=== PATIENT | female | born 1960 | race Caucasian/White ===

== ENCOUNTER 2016-08-12 23:25 | Emergency (ER) | payer BC ==
[~2016-08-12] VITALS: Ht 162.6 cm; Wt 115.0 kg
[~2016-08-12 23:25] MED LIST: HCTZ 25MG TAB25 MG PO
[2016-08-12 23:27] VITALS: TEMP 98.5
[2016-08-12] MEDS ORDERED: GLUCOPHAGE500 MG/TAB PO (23:35)
[2016-08-13 00:31] LABS: ADJUSTED CALCIUM 9.1 mg/dL (8.4-10.2); ALBUMIN 4.1 gm/dL (3.5-5.0); BILIRUBIN,TOTAL 0.4 mg/dL (0.0-1.0); CALCIUM 9.2 mg/dL (8.4-10.2); CREATININE, serum 0.64 mg/dL (0.52-1.25); POTASSIUM 3.9 mmol/L (3.4-5.0); TOTAL PROTEIN 7.3 gm/dL (6.4-8.2)
[2016-08-13] MEDS ORDERED: PRINIVIL5 MG PO (00:36)
[2016-08-13] MEDS ORDERED: LIPITOR 40MG TA40 MG PO (00:37)
[2016-08-13 00:39] LABS: BASO % 0.3 % (0.0-2.0); EOS # 0.3 (0.0-0.7); EOS % 2.9 % (0-4.0); GRAN % 61.3 % (42.2-75.2); HEMATOCRIT 38.4 % (37.0-47.0); HEMOGLOBIN 12.1 g/dl (12.5-16.0); LYMPH # 3.1 (1.2-3.4); LYMPH % 26.9 % (20.0-51.0); MEAN CELL VOLUME 81 fl (80.0-100.0); MEAN CORPUSCULAR HEMOGLOBIN 26 pg (27.0-31.0); MEAN CORPUSCULAR HGB CONC 32 g/dl (33.0-37.0); MONO % 8.3 % (1.7-9.3); PLATELET COUNT 325 K/mm3 (130-400); RED BLOOD COUNT 4.74 M/mm3 (4.10-5.30); REDCELL DISTRIBUTION WIDTH-CV 14.9 % (11.5-14.5); WHITE BLOOD COUNT 11.4 K/mm3 (4.8-10.8)
[2016-08-13] MEDS ORDERED: ANTIVERT 25MG25 MG PO (01:37)
[2016-08-13] MEDS ORDERED: PHENERGAN 25 TA25 MG PO (01:37)
[2016-08-13 01:52] VITALS: BP 128/71; PULSE 94
== END 2016-08-13 01:52 | disposition home or self-care (01) ==
LOC: COL.ER 23:25
PROVIDERS: Emergency Medicine
DX: R42 Dizziness and giddiness (principal); E11.9 Type 2 diabetes mellitus without complications; Z79.84 Long term (current) use of oral hypoglycemic drugs; I10 Essential (primary) hypertension; R11.0 Nausea
CPT/HCPCS: J2550; J7030

== ENCOUNTER → 2019-07-09 | Outpatient (CLI) | payer BC ==
[~2019-07-09] MED LIST changes: +ANTIVERT 25MG25 MG PO; +GLUCOPHAGE500 MG/TAB PO; +LIPITOR 40MG TA40 MG PO; +PHENERGAN 25 TA25 MG PO; +PRINIVIL5 MG PO
== END ==
LOC: MC.RAD 08:21
DX: N63.10 Unspecified lump in the right breast, unspecified quadrant (principal)

== ENCOUNTER 2019-07-23 07:06 | Day surgery (SDC) | payer BC ==
[~2019-07-23] VITALS: Ht 165.1 cm; Wt 110.9 kg
[2019-07-23 08:01] VITALS: BP 147/78; PULSE 97; TEMP 97.7
[2019-07-23] MEDS ORDERED: VITAMIN C500 MG PO (08:09)
[2019-07-23] MEDS ORDERED: VITAMIN D31000 I1 PO (08:09)
[2019-07-23] MEDS ORDERED: VITAMIN B COMPL1 SGL PO (08:09)
--- NOTE | 2019-07-23 10:32 | NUR ---
The patient was taken via wheelchair back to Radiology to have further imaging and her needle localization completed prior to surgery. The patient's chart was sent with her to radiology. Will continue to monitor the patient when she returns to the unit.
--- NOTE | 2019-07-23 11:52 | NUR ---
The patient arrived back to [facility] from the radiology department at this time. The patient ambulated from wheelchair to the bathroom then back to her cart using a steady gait and appeared to tolerate the activity well using a steady gait. The patient's IV fluids were started and her Pepcid was given as ordered. The patient's was brought back to be at her bedside once again now that she has returned. Call light is within reach. Will continue to monitor the patient.
--- NOTE | 2019-07-23 13:00 | NUR ---
The patient was taken over to recovery room via cart to have her nerve block completed prior to surgery. The patient's chart was sent her to the recovery room then surgery. The patient's is going to wait in her room during the block and surgery.
[2019-07-23] MEDS ORDERED: NORCO 325 MG-51 TAB PO (15:53)
[2019-07-23 16:50] VITALS: BP 155/56; PULSE 87; TEMP 97.6
--- NOTE | 2019-07-23 16:50 | NUR ---
[place] [facility] [place] [facility] [place] PAC[place]. Pt awake and alert. Request to use restroom right away. Pt up to restoom with stand by assistance. Pt voids large amount without difficulties. Pt back to room. VSS. Jello and diet sprite given per pt request. Right axillary dressing has small blood shadowing approximetly dime size noted. Right breast dressing is clean dry and intact. Will continue to monitor. Ice pack at incision sites. in room. Call light within reach.
[2019-07-23 17:05] VITALS: BP 151/62; PULSE 87
--- NOTE | 2019-07-23 17:05 | NUR ---
Pt continues to rest. Tolerating food and fluids without difficulties. Call light within reach.
[2019-07-23 17:20] VITALS: BP 139/77; PULSE 89
--- NOTE | 2019-07-23 17:20 | NUR ---
Pt continues to rest. Crackers given per pt request. Pt rates pain 5/10 to right axillary. Will provide pain medication per PRN orders. Call light within reach.
[2019-07-23 17:35] VITALS: BP 147/57; PULSE 88
--- NOTE | 2019-07-23 17:35 | NUR ---
Pt continues to rest. Denies needs. Call light within reach.
--- NOTE | 2019-07-23 18:00 | NUR ---
Discharge instructions reviewed. Pt voices understanding. IV site discontinued with all parts intact. Pt up to dress with assistance from . Call light within reach.
--- NOTE | 2019-07-23 18:15 | NUR ---
Pt escorted to private car via wheel chair. Pt accompanied home by her .
== END 2019-07-23 18:15 | disposition home or self-care (01) ==
LOC: SDCO 07:06
DX: C50.111 Malignant neoplasm of central portion of right female breast (principal); I10 Essential (primary) hypertension; E11.9 Type 2 diabetes mellitus without complications; E78.00 Pure hypercholesterolemia, unspecified; G47.33 Obstructive sleep apnea (adult) (pediatric); E66.01 Morbid (severe) obesity due to excess calories; R42 Dizziness and giddiness; Z17.0 Estrogen receptor positive status [ER+]; Z68.39 Body mass index [BMI] 39.0-39.9, adult; Z88.5 Allergy status to narcotic agent; Z82.49 Family history of ischemic heart disease and other diseases of the circulatory system; Z79.84 Long term (current) use of oral hypoglycemic drugs; Z79.899 Other long term (current) drug therapy
CPT/HCPCS: A9541; J0690; J1100; J1885; J2250; J2405; J2704; J3010; J7030; J7120

== ENCOUNTER → 2020-06-18 | Outpatient (CLI) | payer BC ==
[~2020-06-18] MED LIST changes: +NORCO 325 MG-51 TAB PO; +VITAMIN B COMPL1 SGL PO; +VITAMIN C500 MG PO; +VITAMIN D31000 I1 PO
== END ==
LOC: MC.RAD 08:00
DX: Z98.890 Other specified postprocedural states (principal); C50.111 Malignant neoplasm of central portion of right female breast; Z98.82 Breast implant status

== ENCOUNTER → 2021-06-20 | Outpatient (CLI) | payer BC | LOC: MC.RAD 06:57 | DX: R92.8 Other abnormal and inconclusive findings on diagnostic imaging of breast (principal); Z85.3 Personal history of malignant neoplasm of breast ==

== ENCOUNTER → 2021-10-04 | Outpatient (CLI) | payer BC | LOC: COL.RAD 12:43 | DX: K76.89 Other specified diseases of liver (principal); K76.9 Liver disease, unspecified; Z85.3 Personal history of malignant neoplasm of breast ==

== ENCOUNTER → 2021-10-18 | Outpatient (CLI) | payer BC | LOC: COL.RAD 06:58 | DX: C50.919 Malignant neoplasm of unspecified site of unspecified female breast (principal); K76.0 Fatty (change of) liver, not elsewhere classified | CPT/HCPCS: Q9967 ==

== ENCOUNTER → 2023-09-24 | Outpatient (CLI) | payer BC | LOC: MC.RAD 11:11 | DX: Z12.31 Encounter for screening mammogram for malignant neoplasm of breast (principal); Z85.3 Personal history of malignant neoplasm of breast ==